=== PATIENT | male | born 1950 | race Caucasian/White ===

== ENCOUNTER 2018-01-15 10:17 | Inpatient (IN) ==
[2018-01-15 11:11] LABS: Hematocrit 30.3 % (42.0-52.0); Hemoglobin 9.4 gm/dL (13.5-18.0); Mean Cell Volume 92.4 fl (78-100); Mean Corpuscular Hemoglobin 28.7 pg (27-31); Mean Platelet Volume 9.9 fl (8-11.3); Neutrophil # 5.4 K/mm3 (1.3-6.0); Neutrophil % 89.6 % (42-75.0); Platelet Count 338 K/mm3 (150-450); Red Blood Count 3.28 M/mm3 (4.7-6.0); Red Cell Distribution Width 15.9 % (11.5-14.0)
[2018-01-15 11:27] LABS: Troponin I 0.036 ng/mL (0.00-0.10)
[2018-01-15 11:31] LABS: ALT 10 U/L (19-67); AST 16 U/L (0-48); Albumin * 2.5 gm/dl (3.4-5.0); Alkaline Phosphatase * 237 U/L (50-170); Anion Gap 14.1 mmol/L (6.8-13.8); BNP * 28270 pg/mL (5-350); BUN/Creatinine Ratio 20.7 (9.0-21.6); Bilirubin, Total 0.7 mg/dL (0.0-1.1); Blood Urea Nitrogen 40 mg/dL (6-23); Ca. Corrected For Albumin 9.5 mg/dL (8.4-10.2); Calcium * 8.6 mg/dL (7.9-10.9); Carbon Dioxide 24.5 mmol/L (24-32.6); Chloride 101 mmol/L (97-106); Glucose * 293 mg/dL (70-110); Lipase 76 U/L (73-393); Potassium 4.6 mmol/L (3.4-4.6); Sodium 135 mmol/L (132-142); Total Protein 8.9 gm/dL (6.2-8.2)
[2018-01-15] MEDS ORDERED: FUROSEMIDE 10 MG/ML VIAL IV ONE (11:52)
[2018-01-15] MEDS ORDERED: MORPHINE SULFATE 2 MG/ML DISP.SYRIN IV ONE (11:53)
[2018-01-15] MEDS ORDERED: FUROSEMIDE 10 MG/ML VIAL ONE (11:58)
[2018-01-15] MEDS ORDERED: MORPHINE SULFATE 2 MG/ML DISP.SYRIN ONE (11:58)
[2018-01-15 12:28] LABS: Urine Bilirubin Negative (NEGATIVE); Urine Blood 25 /ul (NEGATIVE); Urine Ketone Negative (NEGATIVE); Urine Nitrite Negative (NEGATIVE); Urine Protein 100 mg/dL (NEGATIVE); Urine Specific Gravity 1.025 SP.GR. (1.005-1.030); Urine Urobilinogen Normal (NORMAL); Urine pH 5.5 pH (5.0-7.0)
--- NOTE | 2018-01-15 12:35 | ERNOTE ---
Dyspnea - Date Date of Service: 01/15/18 - General Presenting Symptoms: shortness of breath Time Seen by Provider: 01/15/18 10:40 Source: patient Exam Limitations: no limitations - Immun/Allergies/Home Medications Immunizations: IMMUNIZATION HX Immunizations Up to Date Yes History of Influenza Vaccine Yes Hx Pneumococcal Vaccination Yes Allergies/Adverse Reactions: Allergies No Known Allergies Allergy (Verified 01/15/18 10:33) - History of Present Illness Narrative: Patient presents to the ED with leg pain and swelling, SOB and increasing CONTRERAS. He relates that he has been getting more SOB for the last 1-2 months and now he can't even walk 15 steps without having to stop d/t SOB. No fever. Bilateral leg swelling and weeping that is new and bilateral leg aching. He has not been taking his medications for the last many months because he ran out. Generalized weakness but denies acute focal weakness. Severity: moderate Treatment ONLINE FACILITATOR: none Initiating event: Reports: out of meds Frequency of episodes: Reports: no prior episodes Modifying Factors - (Improves): Reports: other - nothing Modifying Factors (Worsens): Reports: other - exertion Associated Symptoms-Dyspnea: Reports: ankle/leg swelling. Denies: fever/chills , dizziness Prior Treatment: Denies: recently seen Review of Systems - Review of Systems Constitutional: Absent: fever ENT: Present: no symptoms reported Respiratory: Present: shortness of breath Cardiology: Absent: chest pain Gastrointestinal/Abdominal: Absent: vomiting Genitourinary: Absent: dysuria All Other Systems: All systems neg except as marked Medical History (Last Reviewed 01/15/18 @ 12:30 by Ari Carvalho MD) Congestive heart failure HTN (hypertension) Pacemaker Surgical History: Surgical History (Last Reviewed 01/15/18 @ 12:30 by Ari Carvalho MD) coronary artery bypass Social History: Preferred Language Divehi Smoking Status Former smoker Alcohol Use none Drug Use none Physical Exam - Physical Exam General Appearance: Present: alert, no apparent distress Head Exam: Present: normal inspection, no evidence of injury Eye Exam: Normal inspection: bilateral, PERRL: bilateral Ears, Nose, Throat: Present: normal ENT inspection Neck: Present: other - trachea midline Respiratory: Present: other - mild tachypnea with talking. Decreased breath sounds right base. Cardiovascular/Chest: Present: normal peripheral pulses, irregularly irregular Gastrointestinal/Abdominal: Present: normal bowel sounds, nontender, soft, other - mild distention, Back Exam: Absent: CVA tenderness (R), CVA tenderness (L) Neurological Exam: Present: alert, other - no acute unilateral focal motor or snesory deficits. Skin Exam: Present: normal color, warm/dry, other - Bilateral LE edema and bilateral LE cellulitis d/t weeping. ED Progress - Results and Orders Patient's Lab Results:: I have reviewed the patient's lab results. - Vital Signs Patient's Vital Signs:: I have reviewed the patient's vital signs. Vital Signs: Vital Signs 01/15/18 10:17 01/15/18 11:03 01/15/18 11:29 Temperature 36.5 C Pulse Rate 89 93 87 Respiratory Rate 23 H 22 H 25 H Blood Pressure 164/85 H 148/76 148/76 O2 Sat by Pulse Oximetry 100 99 100 01/15/18 12:07 01/15/18 12:09 Temperature 36.9 C Pulse Rate 91 90 Respiratory Rate 22 H Blood Pressure 156/80 H O2 Sat by Pulse Oximetry 100 - EKG EKG: atrial fibrillation EKG read: Interp. by me EKG Comments: A fib RBBB. Non-specific, no clear evidence of STEMI - X-Ray X-Ray #1 X-Ray: chest Interpretation: Interp. by me X-ray Comments: I reviewed official radiology report - Progress/Reassessment Chief Complaint: Dyspnea Progress Note-Subjective: 01/15/18 12:33 Patient out of his medications. Given IV lasix. Has CHF. He tells me he does not recall being diagnosed with CHF in the past. Has cellulitis bilateral LE d/ y weeping and stasis changes. IV ABx given and IV blood Cx given. D/W Dr Bowers, will admit. patient agreeable. I discussed warning signs and reasons to return as well as the need for close f/u. Departure Clinical Impression: Cellulitis, Congestive heart failure - Departure Disposition: Still a patient Condition: Fair
[2018-01-15 12:41] LABS: Urine Appearance Cloudy (CLEAR); Urine Bacteria 2+; Urine Coarse Granular Cast 0-5 /LPF; Urine Color Yellow; Urine Fine Granular Cast 0-5 /LPF; Urine Hyaline Cast 0-5 /LPF; Urine RBC 0-5 /hpf (0-5)
[2018-01-15] MEDS ORDERED: traMADol HCL 50 MG TABLET PO PRN ×3 (15:16→15:59)
--- NOTE | 2018-01-15 16:10 | HP ---
Chief Complaint - Chief Complaint Date of Service: 01/15/18 Time of Service: 15:49 Chief Complaint: shortness of breath History of Present Illness: Sean Mukherjee, is a 67-year-old white male, patient of Dr. Bj Kramer, with past medical history of chronic atrial fibrillation, chronic kidney disease stage III , coronary artery disease status post CABG, hypertension, hyperlipidemia, pacemaker placement, diabetes mellitus type 2, who was admitted on 01/15/2018 because of increasing shortness of breath. The patient says that for the last 1 -2 weeks he has been having shortness of breath associated with swelling of his lower extremities and orthopnea. One week prior to admission his lower extremities started to get more swollen and became erythematous was with some weeping of fluid. He says he has not been taking any of his medications since 5 -6 months ago ever since he ran out of them. He has not followed up with his PCP for 1 year now. He was seen in our emergency room where he was found to have an elevated BNP of 28,000+, normal WBC, elevated BUN/creatinine, normal troponin and a chest x-ray showed bilateral pleural effusion right more than left, right middle lobe and right lower lobe consolidation likely atelectasis but cannot rule out pneumonia. He was given IV Lasix 40 mg in was then admitted. His main complaint now is that he wants and feels he will urinate but he cannot bring it out. 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 Smoking Status Former smoker Have you smoked in the past 12 No months Do you dip or chew tobacco No Alcohol Use none Drug Use none Review Of Systems (GEN) - Review of Systems Generalized/Overall Review: Absent: Weakness, Chills, Fever Respiratory: Present: Shortness of Breath, Orthopnea Cardiac: Present: Edema. Absent: Chest Pain, Palpitations Abdominal: Absent: Nausea, Vomiting Genitourinary: Absent: Urgency, Frequency Musculoskeletal: Present: Joint Pain Immunizations: IMMUNIZATION HX Immunizations Up to Date Yes History of Influenza Vaccine Yes Hx Pneumococcal Vaccination Yes Allergies/Adverse Reactions: Allergies Allergy/AdvReac Type Severity Reaction Status Date / Time No Known Allergies Allergy Verified 01/15/18 13:51 Home Medications: HOME MEDICATIONS Allopurinol [Zyloprim (Allopurinol)] 100 mg PO DAILY 01/15/18 [Last Taken Unknown] Amiodarone HCl 200 mg PO DAILY 01/15/18 [Last Taken Unknown] Apixaban [Eliquis] 2.5 mg PO BID 01/15/18 [Last Taken Unknown] Aspirin 81 mg PO DAILY 01/15/18 [Last Taken Unknown] Diltiazem HCl [Cardizem] 120 mg PO HS 01/15/18 [Last Taken Unknown] Furosemide [Lasix] 20 mg PO DAILY 01/15/18 [Last Taken Unknown] Insulin Glargine,Hum.rec.anlog [Lantus] 42 unit SQ BID 01/15/18 [Last Taken Unknown] Insulin Lispro [Humalog] See Protocol SQ AC 01/15/18 [Last Taken Unknown] Lisinopril 20 mg PO DAILY 01/15/18 [Last Taken Unknown] Simvastatin [Zocor] 20 mg PO HS 01/15/18 [Last Taken Unknown] traMADol HCL [Tramadol HCl] 50 mg PO ONCE PRN 01/15/18 [Last Taken Unknown] Exam - Exam Vital Signs: Vital Signs - Last Taken Temp 36.4 C 01/15/18 13:59 Pulse 93 01/15/18 15:17 Resp 16 01/15/18 13:59 BP 158/82 H 01/15/18 13:59 Pulse Ox 100 01/15/18 13:59 Constitutional: Present: Alert, Oriented x3, Cooperative ENT Exam: Present: hearing grossly normal Eye Exam: bilateral eye: normal inspection, PERRL, EOMI Neck: Present: supple Respiratory: Present: decreased breath sounds, rales. Absent: No wheezing Cardiovascular/Chest: Present: no murmur, JVD, irregularly irregular Abdomen: Present: soft, nontender, distended, hypoactive Extremity: Present: inflammation, lower extremity edema, other - erythema Diagnostic Studies: Abnormal Lab Results 01/15/18 01/15/18 01/15/18 Range/Units 11:00 11:00 11:00 RBC 3.28 L (4.7-6.0) M/mm3 Hgb 9.4 L (13.5-18.0) gm/dL Hct 30.3 L (42.0-52.0) % MCHC 31.0 L (32-36) g/dl RDW 15.9 H (11.5-14.0) % Neutrophils % 89.6 H (42-75.0) % Lymphocytes % 3.8 L (20-51) % Lymphocytes # 0.23 L (1.5-3.5) k/mm3 Anion Gap 14.1 H (6.8-13.8) mmol/L BUN 40 H (6-23) mg/dL Creatinine 1.93 H (0.4-1.4) mg/dL Est GFR (Non-Af Amer) 37 L (60-130) mL/min Random Glucose 293 H (70-110) mg/dL Lactic Acid, Venous 2.3 H* (0.4-2.0) mmol/L ALT 10 L (19-67) U/L Alkaline Phosphatase 237 H (50-170) U/L B-Natriuretic Peptide 84753 H (5-350) pg/mL Total Protein 8.9 H (6.2-8.2) gm/dL Albumin 2.5 L (3.4-5.0) gm/dl Urine Protein (NEGATIVE) mg/dL Urine Glucose (UA) (NEGATIVE) mg/dL Urine Blood (NEGATIVE) /ul Prot Sulfosalicylic Acd (0) mg/dL Ur Leukocyte Esterase (NEGATIVE) /ul Urine WBC (0-5) /hpf Ur Epithelial Cells (0-5) /hpf Calcium Oxalate Crystal (NONE) /hpf Uric Acid Crystals (NONE) /hpf Urine Bacteria (NONE) Hyaline Casts (NONE) /LPF Fine Granular Casts (NONE) /LPF Coarse Granular Casts (NONE) /LPF 01/15/18 01/15/18 Range/Units 12:10 14:11 RBC (4.7-6.0) M/mm3 Hgb (13.5-18.0) gm/dL Hct (42.0-52.0) % MCHC (32-36) g/dl RDW (11.5-14.0) % Neutrophils % (42-75.0) % Lymphocytes % (20-51) % Lymphocytes # (1.5-3.5) k/mm3 Anion Gap (6.8-13.8) mmol/L BUN (6-23) mg/dL Creatinine (0.4-1.4) mg/dL Est GFR (Non-Af Amer) (60-130) mL/min Random Glucose (70-110) mg/dL Lactic Acid, Venous 2.1 H (0.4-2.0) mmol/L ALT (19-67) U/L Alkaline Phosphatase (50-170) U/L B-Natriuretic Peptide (5-350) pg/mL Total Protein (6.2-8.2) gm/dL Albumin (3.4-5.0) gm/dl Urine Protein 100 H (NEGATIVE) mg/dL Urine Glucose (UA) >=1000 H (NEGATIVE) mg/dL Urine Blood 25 H (NEGATIVE) /ul Prot Sulfosalicylic Acd 3+ H (0) mg/dL Ur Leukocyte Esterase 100 H (NEGATIVE) /ul Urine WBC 5-10 H (0-5) /hpf Ur Epithelial Cells >25 H (0-5) /hpf Calcium Oxalate Crystal Few - 1+ H (NONE) /hpf Uric Acid Crystals Few - 1+ H (NONE) /hpf Urine Bacteria 2+ H (NONE) Hyaline Casts 0-5 H (NONE) /LPF Fine Granular Casts 0-5 H (NONE) /LPF Coarse Granular Casts 0-5 H (NONE) /LPF Laboratory Results WBC 6.0 K/mm3 (4.0-10.5) 01/15/18 11:00 RBC 3.28 M/mm3 (4.7-6.0) L 01/15/18 11:00 Hgb 9.4 gm/dL (13.5-18.0) L 01/15/18 11:00 Hct 30.3 % (42.0-52.0) L 01/15/18 11:00 MCV 92.4 fl (78-100) 01/15/18 11:00 MCH 28.7 pg (27-31) 01/15/18 11:00 MCHC 31.0 g/dl (32-36) L 01/15/18 11:00 RDW 15.9 % (11.5-14.0) H 01/15/18 11:00 Plt Count 338 K/mm3 (150-450) 01/15/18 11:00 MPV 9.9 fl (8-11.3) 01/15/18 11:00 Immature Gran % (Auto) 0.30 % (0.001-0.429) 01/15/18 11:00 Immature Gran # (Auto) 0.02 K/mm3 (0.000-0.0310) 01/15/18 11:00 Neutrophils % 89.6 % (42-75.0) H 01/15/18 11:00 Lymphocytes % 3.8 % (20-51) L 01/15/18 11:00 Monocytes % 4.5 % (0.0-9) 01/15/18 11:00 Eosinophils % 1.0 % (0.0-3.0) 01/15/18 11:00 Basophils % 0.8 % (0.0-1.0) 01/15/18 11:00 Nucleated RBC % 0.0 k/mm3 (0-1) 01/15/18 11:00 Neutrophils # 5.4 K/mm3 (1.3-6.0) 01/15/18 11:00 Lymphocytes # 0.23 k/mm3 (1.5-3.5) L 01/15/18 11:00 Monocytes # 0.3 k/mm3 (0.0-1.0) 01/15/18 11:00 Eosinophils # 0.1 k/mm3 (0.0-0.7) 01/15/18 11:00 Absolute Basophils 0.1 k/mm3 (0.0-0.1) 01/15/18 11:00 Sodium 135 mmol/L (132-142) 01/15/18 11:00 Plasma Sodium 138 mmol/L (130-142) 01/15/18 11:00 Potassium 4.6 mmol/L (3.4-4.6) 01/15/18 11:00 Chloride 101 mmol/L (97-106) 01/15/18 11:00 Carbon Dioxide 24.5 mmol/L (24-32.6) 01/15/18 11:00 Anion Gap 14.1 mmol/L (6.8-13.8) H 01/15/18 11:00 BUN 40 mg/dL (6-23) H 01/15/18 11:00 Creatinine 1.93 mg/dL (0.4-1.4) H 01/15/18 11:00 Est GFR (Non-Af Amer) 37 mL/min (60-130) L 01/15/18 11:00 BUN/Creatinine Ratio 20.7 (9.0-21.6) 01/15/18 11:00 Random Glucose 293 mg/dL (70-110) H 01/15/18 11:00 Lactic Acid, Venous 2.1 mmol/L (0.4-2.0) H 01/15/18 14:11 Calcium 8.6 mg/dL (7.9-10.9) 01/15/18 11:00 Calcium Adj for Albumin 9.5 mg/dL (8.4-10.2) 01/15/18 11:00 Total Bilirubin 0.7 mg/dL (0.0-1.1) 01/15/18 11:00 AST 16 U/L (0-48) 01/15/18 11:00 ALT 10 U/L (19-67) L 01/15/18 11:00 Alkaline Phosphatase 237 U/L (50-170) H 01/15/18 11:00 Ammonia Less than 17.0 mcmol/L (11-35) 01/15/18 11:00 Troponin I 0.036 ng/mL (0.00-0.10) 01/15/18 11:00 B-Natriuretic Peptide 73541 pg/mL (5-350) H 01/15/18 11:00 Total Protein 8.9 gm/dL (6.2-8.2) H 01/15/18 11:00 Albumin 2.5 gm/dl (3.4-5.0) L 01/15/18 11:00 Lipase 76 U/L (73-393) 01/15/18 11:00 Urine Color Yellow 01/15/18 12:10 Urine Appearance Cloudy (CLEAR) 01/15/18 12:10 Urine pH 5.5 pH (5.0-7.0) 01/15/18 12:10 Ur Specific [place] 1.025 SP.GR. (1.005-1.030) 01/15/18 12:10 Urine Protein 100 mg/dL (NEGATIVE) H 01/15/18 12:10 Urine Glucose (UA) >=1000 mg/dL (NEGATIVE) H 01/15/18 12:10 Urine Ketones Negative mg/dL (NEGATIVE) 01/15/18 12:10 Urine Blood 25 /ul (NEGATIVE) H 01/15/18 12:10 Urine Nitrate Negative (NEGATIVE) 01/15/18 12:10 Urine Bilirubin Negative mg/dl (NEGATIVE) 01/15/18 12:10 Prot Sulfosalicylic Acd 3+ mg/dL (0) H 01/15/18 12:10 Urine Urobilinogen Normal EU/dl (NORMAL) 01/15/18 12:10 Ur Leukocyte Esterase 100 /ul (NEGATIVE) H 01/15/18 12:10 Urine RBC 0-5 /hpf (0-5) 01/15/18 12:10 Urine WBC 5-10 /hpf (0-5) H 01/15/18 12:10 Ur Epithelial Cells >25 /hpf (0-5) H 01/15/18 12:10 Calcium Oxalate Crystal Few - 1+ /hpf (NONE) H 01/15/18 12:10 Uric Acid Crystals Few - 1+ /hpf (NONE) H 01/15/18 12:10 Urine Bacteria 2+ (NONE) H 01/15/18 12:10 Hyaline Casts 0-5 /LPF (NONE) H 01/15/18 12:10 Fine Granular Casts 0-5 /LPF (NONE) H 01/15/18 12:10 Coarse Granular Casts 0-5 /LPF (NONE) H 01/15/18 12:10 Urine Culture Comments Culture to follow 01/15/18 12:10 Ethyl Alcohol Less than 3.0 mg/dL (0.0-10.0) 01/15/18 11:00 Assessment/Plan - Assessment/Plan (1) Congestive heart failure Assessment: will continue with IV diuresis and get an echocardiogram. Problem: Acute Qualifiers: Heart failure type: combined systolic and diastolic Heart failure chronicity: acute Qualified Code(s): I50.41 - Acute combined systolic ( congestive) and diastolic (congestive) heart failure (2) Cellulitis Assessment: b/l. continue with IV rocephin, elevate legs. Problem: Acute Qualifiers: Site of cellulitis: extremity Site of cellulitis of extremity: lower extremity Laterality: unspecified laterality Qualified Code(s): L03.119 - Cellulitis of unspecified part of limb (3) CAD (coronary artery disease), autologous vein bypass graft Problem: Chronic Qualifiers: Associated angina: without angina Qualified Code(s): I25.810 - Atherosclerosis of coronary artery bypass graft(s) without angina pectoris (4) Diabetes mellitus Problem: Chronic Qualifiers: Diabetes mellitus type: type 2 Diabetes mellitus longterm insulin use: with terminal operations supervisor use Diabetes mellitus complication status: with kidney complications Diabetes mellitus complication detail: with chronic kidney disease Chronic kidney disease stage: stage 3 (moderate) Qualified Code(s): E11.22 - Type 2 diabetes mellitus with diabetic chronic kidney disease; N18.3 - Chronic kidney disease, stage 3 (moderate); Z79.4 - termite treater (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 will start a alvarez cath and get a KATJA. Problem: Acute
[2018-01-15] MEDS: INSULIN LISPRO 100 UNITS/ML VIAL SC SCH (16:34)
[2018-01-15] MEDS: POTASSIUM CHLORIDE 20 MEQ TABLET.SA PO SCH (16:34)
[2018-01-15] MEDS ORDERED: oxyCODONE HCL/ACETAMINOPHEN 1 TAB TABLET PO PRN (16:42)
[2018-01-15] MEDS: TAMSULOSIN HCL 0.4 MG CAP.SR.24H PO SCH (18:12)
[2018-01-15] MEDS: INSULIN GLARGINE,HUM.REC.ANLOG 100 UNITS/ML VIAL SC SCH (21:25)
[2018-01-15] MEDS: APIXABAN 2.5 MG TABLET PO SCH (21:27)
[2018-01-15] MEDS: SIMVASTATIN 20 MG TABLET PO SCH (21:28)
[2018-01-15] MEDS: DILTIAZEM HCL 120 MG CAP.SR.24H PO SCH (21:28)
[2018-01-15] MEDS: FUROSEMIDE 10 MG/ML VIAL IV SCH (21:29)
[2018-01-15] MEDS: oxyCODONE HCL/ACETAMINOPHEN 1 TAB TABLET PO PRN (21:37)
[2018-01-16] MEDS: INSULIN LISPRO 100 UNITS/ML VIAL SC SCH ×3 (06:35→17:01)
[2018-01-16] MEDS ORDERED: AMIODARONE HCL 200 MG TABLET PO SCH (09:00)
[2018-01-16] MEDS ORDERED: LISINOPRIL 20 MG TABLET PO SCH (09:00)
[2018-01-16] MEDS: ASPIRIN 81 MG TAB.CHEW PO SCH (09:08)
[2018-01-16] MEDS: POTASSIUM CHLORIDE 20 MEQ TABLET.SA PO SCH ×2 (09:09→17:02)
[2018-01-16] MEDS: FUROSEMIDE 10 MG/ML VIAL IV SCH ×2 (09:09→21:30)
[2018-01-16] MEDS: APIXABAN 2.5 MG TABLET PO SCH ×2 (09:09→21:29)
[2018-01-16] MEDS: INSULIN GLARGINE,HUM.REC.ANLOG 100 UNITS/ML VIAL SC SCH ×2 (09:09→23:00)
[2018-01-16] MEDS: oxyCODONE HCL/ACETAMINOPHEN 1 TAB TABLET PO PRN ×2 (09:10→17:40)
[2018-01-16] MEDS: ALLOPURINOL 100 MG TABLET PO SCH (09:10)
--- NOTE | 2018-01-16 09:54 | PN ---
Subjective - Date and Time Seen Date: 01/16/18 Time: 09:51 Subjective Narrative: patient says he is less SOB but his legs are still sore. Objective - Review of Systems Generalized/Overall Review: Reports: Weakness. Denies: Chills, Fever Respiratory: Reports: Shortness of Breath, Orthopnea. Denies: Cough, Wheezing Cardiac: Reports: Edema. Denies: Chest Pain, Palpitations Abdominal: Denies: Nausea, Vomiting Genitourinary Symptoms: Denies: Urgency, Frequency Musculoskeletal Complaints: Reports: Joint Pain - Vitals Vitals: Last Vital Signs Temp 36.4 C 01/16/18 07:29 Pulse 61 01/16/18 09:09 Resp 20 01/16/18 07:29 BP 122/48 01/16/18 09:09 Pulse Ox 96 01/16/18 07:29 - Abnormal Lab Findings Abnormal Lab Findings: Abnormal Lab Results 01/15/18 01/15/18 01/15/18 Range/Units 11:00 11:00 11:00 RBC 3.28 L (4.7-6.0) M/mm3 Hgb 9.4 L (13.5-18.0) gm/dL Hct 30.3 L (42.0-52.0) % MCHC 31.0 L (32-36) g/dl RDW 15.9 H (11.5-14.0) % Neutrophils % 89.6 H (42-75.0) % Lymphocytes % 3.8 L (20-51) % Lymphocytes # 0.23 L (1.5-3.5) k/mm3 Anion Gap 14.1 H (6.8-13.8) mmol/L BUN 40 H (6-23) mg/dL Creatinine 1.93 H (0.4-1.4) mg/dL Est GFR (Non-Af Amer) 37 L (60-130) mL/min Random Glucose 293 H (70-110) mg/dL Lactic Acid, Venous 2.3 H* (0.4-2.0) mmol/L ALT 10 L (19-67) U/L Alkaline Phosphatase 237 H (50-170) U/L B-Natriuretic Peptide 76657 H (5-350) pg/mL Total Protein 8.9 H (6.2-8.2) gm/dL Albumin 2.5 L (3.4-5.0) gm/dl Urine Protein (NEGATIVE) mg/dL Urine Glucose (UA) (NEGATIVE) mg/dL Urine Blood (NEGATIVE) /ul Prot Sulfosalicylic Acd (0) mg/dL Ur Leukocyte Esterase (NEGATIVE) /ul Urine WBC (0-5) /hpf Ur Epithelial Cells (0-5) /hpf Calcium Oxalate Crystal (NONE) /hpf Uric Acid Crystals (NONE) /hpf Urine Bacteria (NONE) Hyaline Casts (NONE) /LPF Fine Granular Casts (NONE) /LPF Coarse Granular Casts (NONE) /LPF 01/15/18 01/15/18 Range/Units 12:10 14:11 RBC (4.7-6.0) M/mm3 Hgb (13.5-18.0) gm/dL Hct (42.0-52.0) % MCHC (32-36) g/dl RDW (11.5-14.0) % Neutrophils % (42-75.0) % Lymphocytes % (20-51) % Lymphocytes # (1.5-3.5) k/mm3 Anion Gap (6.8-13.8) mmol/L BUN (6-23) mg/dL Creatinine (0.4-1.4) mg/dL Est GFR (Non-Af Amer) (60-130) mL/min Random Glucose (70-110) mg/dL Lactic Acid, Venous 2.1 H (0.4-2.0) mmol/L ALT (19-67) U/L Alkaline Phosphatase (50-170) U/L B-Natriuretic Peptide (5-350) pg/mL Total Protein (6.2-8.2) gm/dL Albumin (3.4-5.0) gm/dl Urine Protein 100 H (NEGATIVE) mg/dL Urine Glucose (UA) >=1000 H (NEGATIVE) mg/dL Urine Blood 25 H (NEGATIVE) /ul Prot Sulfosalicylic Acd 3+ H (0) mg/dL Ur Leukocyte Esterase 100 H (NEGATIVE) /ul Urine WBC 5-10 H (0-5) /hpf Ur Epithelial Cells >25 H (0-5) /hpf Calcium Oxalate Crystal Few - 1+ H (NONE) /hpf Uric Acid Crystals Few - 1+ H (NONE) /hpf Urine Bacteria 2+ H (NONE) Hyaline Casts 0-5 H (NONE) /LPF Fine Granular Casts 0-5 H (NONE) /LPF Coarse Granular Casts 0-5 H (NONE) /LPF - Exam Constitutional: Present: Alert, Oriented x3, Cooperative ENT Exam: Present: hearing grossly normal Neck: Present: supple Respiratory: Present: decreased breath sounds, rales - fine, No wheezing Cardiovascular/Chest: Present: no murmur, JVD, irregularly irregular Abdomen: Present: Normal bowel sounds, soft, nontender, nondistended Extremity: Present: lower extremity edema, other - weeping sores Assessment/Plan - Problems/Diagnosis (1) Congestive heart failure Problem: Acute Qualifiers: Heart failure type: combined systolic and diastolic Heart failure chronicity: acute Qualified Code(s): I50.41 - Acute combined systolic ( congestive) and diastolic (congestive) heart failure Narrative: continue with IV diuresis. follow up Echo . (2) Ascites Problem: Acute Narrative: likely due to CHF. (3) Cellulitis Problem: Acute Qualifiers: Site of cellulitis: extremity Site of cellulitis of extremity: lower extremity Laterality: unspecified laterality Qualified Code(s): L03.119 - Cellulitis of unspecified part of limb Narrative: continue with IV antibiotics. will refer to wound center.. consider Venous US. (4) CAD (coronary artery disease), autologous vein bypass graft Problem: Chronic Qualifiers: Associated angina: without angina Qualified Code(s): I25.810 - Atherosclerosis of coronary artery bypass graft(s) without angina pectoris (5) Diabetes mellitus Problem: Chronic Qualifiers: Diabetes mellitus type: type 2 Diabetes mellitus intermediate insulin use: with intermediate use Diabetes mellitus complication status: with kidney complications Diabetes mellitus complication detail: with chronic kidney disease Chronic kidney disease stage: stage 3 (moderate) Qualified Code(s): E11.22 - Type 2 diabetes mellitus with diabetic chronic kidney disease; N18.3 - Chronic kidney disease, stage 3 (moderate); Z79.4 - terminal computer operator (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
[2018-01-16 12:56] LABS: Hematocrit 30.2 % (42.0-52.0); Hemoglobin 9.2 gm/dL (13.5-18.0); Mean Cell Volume 93.5 fl (78-100); Mean Corpuscular Hemoglobin 28.5 pg (27-31); Mean Corpuscular Hgb Conc 30.5 g/dl (32-36); Mean Platelet Volume 9.8 fl (8-11.3); Neutrophil # 4.2 K/mm3 (1.3-6.0); Neutrophil % 85.7 % (42-75.0); Platelet Count 321 K/mm3 (150-450); Red Blood Count 3.23 M/mm3 (4.7-6.0); Red Cell Distribution Width 15.9 % (11.5-14.0); White Blood Count 4.9 K/mm3 (4.0-10.5)
[2018-01-16 13:07] LABS: Anion Gap 9.7 mmol/L (6.8-13.8); BUN/Creatinine Ratio 22.4 (9.0-21.6); Calcium * 8.5 mg/dL (7.9-10.9); Carbon Dioxide 26.8 mmol/L (24-32.6); Estimated Creat Clear 30.8; Potassium 4.5 mmol/L (3.4-4.6)
--- NOTE | 2018-01-16 16:26 | CONS ---
[facility] - General Date of Service: 01/16/18 Source: patient Exam Limitations: no limitations - History of Present Illness Initial Comments: Patient is a 67 year old male, recently admitted to the hospital for treatment of congestive heart failure, cellulitis and urinary retention. He initially presented to the Emergency Department for treatment of shortness of breath and swelling and weeping of bilateral lower extremities. His past medical history includes chronic atrial fibrillation, chronic kidney disease stage III, coronary artery disease, hypertension, pacemaker and type II diabetes. His current symptoms consist of edema, redness and drainage of bilateral lower extremities. He describes moderate pain associated with the areas. Current treatment includes IV antibiotics. Timing/Duration: getting worse Severity: moderate Allergies/Adverse Reactions: Allergies No Known Allergies Allergy (Verified 01/15/18 13:51) Home Medications: Home Medications Medication Instructions Recorded Last Taken Allopurinol [Zyloprim 100 mg PO DAILY 01/15/18 Unknown (Allopurinol)] Amiodarone HCl 200 mg PO DAILY 01/15/18 Unknown Apixaban [Eliquis] 2.5 mg PO BID 01/15/18 Unknown Aspirin 81 mg PO DAILY 01/15/18 Unknown Diltiazem HCl [Cardizem] 120 mg PO HS 01/15/18 Unknown Furosemide [Lasix] 20 mg PO DAILY 01/15/18 Unknown Insulin Glargine,Hum.rec.anlog 42 unit SQ BID 01/15/18 Unknown [Lantus] Insulin Lispro [Humalog] See Protocol SQ AC 01/15/18 Unknown Lisinopril 20 mg PO DAILY 01/15/18 Unknown Simvastatin [Zocor] 20 mg PO HS 01/15/18 Unknown traMADol HCL [Tramadol HCl] 50 mg PO ONCE PRN 01/15/18 Unknown Procedures Insertion of intraocular lens prosthesis at time of cataract extraction, one- stage (04/22/07) Phacoemulsification and aspiration of cataract (04/22/07) Medications - Medications Current Medications: Current Medications Allopurinol (Zyloprim) 100 mg PO DAILY [facility] Stop: 02/15/18 09:01 Last Admin: 01/16/18 09:10 Dose: 100 mg Amiodarone HCl (Cordarone) 200 mg PO DAILY [facility] Stop: 02/15/18 09:01 Last Admin: 01/16/18 09:08 Dose: 200 mg Apixaban (Eliquis) 2.5 mg PO BID [facility] Stop: 02/14/18 21:01 Last Admin: 01/16/18 09:09 Dose: 2.5 mg Aspirin (Aspirin Chewable) 81 mg PO DAILY [facility] Stop: 02/15/18 09:01 Last Admin: 01/16/18 09:08 Dose: 81 mg Diltiazem HCl (Cardizem Cd) 120 mg PO HS [facility] Stop: 02/14/18 21:01 Last Admin: 01/15/18 21:28 Dose: 120 mg Furosemide (Lasix) 40 mg IV BID [facility] Stop: 02/14/18 21:01 Last Admin: 01/16/18 09:09 Dose: 40 mg Ceftriaxone Sodium 1,000 mg/ (Dextrose/Water) 100 mls @ 200 mls/hr IV Q24H [facility] ; Protocol Stop: 02/15/18 13:01 Last Admin: 01/16/18 13:32 Dose: 200 mls/hr Insulin Glargine (Lantus) 30 units SC BID [facility] Stop: 02/14/18 21:01 Last Admin: 01/16/18 09:09 Dose: 30 units Insulin Human Lispro (Humalog) 0 - 21 units SC ACINS [facility]; Protocol Stop: 02/14/18 17:01 Last Admin: 01/16/18 11:45 Dose: Not Given Lisinopril (Zestril) 20 mg PO DAILY [facility] Stop: 02/15/18 09:01 Last Admin: 01/16/18 09:09 Dose: 20 mg Oxycodone/Acetaminophen (Percocet 5 Mg/325 Mg) 2 tab PO Q6H PRN PRN Reason: Pain Stop: 02/14/18 16:43 Last Admin: 01/16/18 09:10 Dose: 2 tab Potassium Chloride (K-Dur) 20 meq PO BIDWM [facility] Stop: 02/14/18 17:01 Last Admin: 01/16/18 09:09 Dose: 20 meq Simvastatin (Zocor) 20 mg PO HS [facility] Stop: 02/14/18 21:01 Last Admin: 01/15/18 21:28 Dose: 20 mg Tamsulosin HCl (Flomax) 0.4 mg PO DAILY@1800 [facility] Stop: 02/14/18 18:01 Last Admin: 01/15/18 18:12 Dose: 0.4 mg Review of Systems - Review of Systems Generalized/Overall Review: Absent: Chills, Fever EENTM: Absent: Nose Congestion Respiratory: Absent: Cough Cardiac: Absent: Chest Pain Abdominal: Absent: Nausea, Vomiting Musculoskeletal: Present: Joint Pain, Muscle Pain Neurological: Absent: Numbness, Tingling Skin: Present: Lesions, Change in Color Physical Examination - Exam Vital Signs: Vital Signs - Last Taken Temp 36.5 C 01/16/18 15:28 Pulse 64 01/16/18 15:28 Resp 16 01/16/18 15:28 BP 84/40 L 01/16/18 15:28 Pulse Ox 97 01/16/18 15:28 O2 Oxygen Delivery Method Room Air Constitutional: Present: Alert, No distress, Looks Older than stated age ENT Exam: Present: hearing grossly normal Extremity: Present: lower extremity edema, leg pain, other - posterior tibial and dorsalis pedis pulses are not palpable. Skin Exam: Present: other - bilateral distal lower extremities are reddened, with areas of weeping. - Results and Findings: Lab/Microbiology results last 24 hrs: Abnormal/Pending Laboratory Last 24 HRS 01/16/18 01/16/18 12:51 12:51 RBC 3.23 L Hgb 9.2 L Hct 30.2 L MCHC 30.5 L RDW 15.9 H Neutrophils % 85.7 H Lymphocytes % 4.7 L Lymphocytes # 0.23 L BUN 46 H Creatinine 2.05 H Est GFR (Non-Af Amer) 35 L BUN/Creatinine Ratio 22.4 H Culture 01/15/18 11:00 Blood Culture - Preliminary Blood NO GROWTH 24 HOURS 01/15/18 11:23 Blood Culture - Preliminary Blood NO GROWTH 24 HOURS 01/15/18 12:10 Urine Culture - Preliminary Urine,Voided No Pathogens Isolated - Assessments/Findings (1) Cellulitis Problem: Acute Qualifiers: Site of cellulitis: extremity Site of cellulitis of extremity: lower extremity Laterality: unspecified laterality Qualified Code(s): L03.119 - Cellulitis of unspecified part of limb (2) Weak pulse Problem: Acute (3) Stasis dermatitis of both legs Diagnosis(s): The patient would benefit from JIM's, to further assess his vascular status. Recommend using Aquacel Ag to the areas that are draining. This will be covered with gauze and secured with tubigrip for mild compression. The dressing will be changed daily. Wash the area with soap and water at dressing changes. Problem: Acute
[2018-01-16] MEDS: TAMSULOSIN HCL 0.4 MG CAP.SR.24H PO SCH (17:02)
[2018-01-16] MEDS: DILTIAZEM HCL 120 MG CAP.SR.24H PO SCH (21:22)
[2018-01-16] MEDS: SIMVASTATIN 20 MG TABLET PO SCH (21:30)
[2018-01-17] MEDS: INSULIN LISPRO 100 UNITS/ML VIAL SC SCH ×3 (06:39→17:39)
[2018-01-17] MEDS: oxyCODONE HCL/ACETAMINOPHEN 1 TAB TABLET PO PRN (06:43)
[2018-01-17] MEDS: ASPIRIN 81 MG TAB.CHEW PO SCH (08:23)
[2018-01-17] MEDS: POTASSIUM CHLORIDE 20 MEQ TABLET.SA PO SCH (08:23)
[2018-01-17] MEDS: APIXABAN 2.5 MG TABLET PO SCH ×2 (08:23→20:34)
[2018-01-17] MEDS: ALLOPURINOL 100 MG TABLET PO SCH (08:24)
--- NOTE | 2018-01-17 08:51 | PN ---
Subjective - Date and Time Seen Date: 01/17/18 Time: 08:40 Subjective Narrative: Patient's main complaint is leg pain, b/l. His BP has been on the low side and his BP med/IV lasix has been held. His Echo showed borderline reduced EF, PHTN, mean RVSP 57 (as he has AFib) but max was 64mm Hg, possible diastolic dysfunction, moderate TR, mild MA. Objective - Review of Systems Generalized/Overall Review: Denies: Chills, Fever Respiratory: Reports: Shortness of Breath. Denies: Cough Cardiac: Reports: Edema. Denies: Chest Pain, Palpitations Abdominal: Reports: Nausea. Denies: Vomiting Genitourinary Symptoms: Denies: Urgency, Frequency - Vitals Vitals: Last Vital Signs Temp 36.4 C 01/17/18 07:00 Pulse 82 01/17/18 07:00 Resp 18 01/17/18 07:00 BP 85/47 L 01/17/18 07:00 Pulse Ox 100 01/17/18 07:00 - Abnormal Lab Findings Abnormal Lab Findings: Abnormal Lab Results 01/16/18 01/16/18 Range/Units 12:51 12:51 RBC 3.23 L (4.7-6.0) M/mm3 Hgb 9.2 L (13.5-18.0) gm/dL Hct 30.2 L (42.0-52.0) % MCHC 30.5 L (32-36) g/dl RDW 15.9 H (11.5-14.0) % Neutrophils % 85.7 H (42-75.0) % Lymphocytes % 4.7 L (20-51) % Lymphocytes # 0.23 L (1.5-3.5) k/mm3 BUN 46 H (6-23) mg/dL Creatinine 2.05 H (0.4-1.4) mg/dL Est GFR (Non-Af Amer) 35 L (60-130) mL/min BUN/Creatinine Ratio 22.4 H (9.0-21.6) - Exam Constitutional: Present: Alert, Oriented x3, Cooperative ENT Exam: Present: hearing grossly normal Neck: Present: supple Respiratory: Present: decreased breath sounds, rales, No wheezing Cardiovascular/Chest: Present: JVD, systolic murmur, irregularly irregular Abdomen: Present: Normal bowel sounds, soft, nontender, nondistended Extremity: Present: lower extremity edema - improved, other - erythema, weak to absent pulse on palpation but positive pulses on Doppler Assessment/Plan - Problems/Diagnosis (1) Leg pain, bilateral Problem: Acute Narrative: r/o DVT r/o PAD. due to his PHTN will get a venous doppler. JIM on outpatient basis . (2) Pulmonary hypertension Problem: Acute Narrative: RVSP of 57, max was 64 mm HG possible Right heart failure. will continue with diuresis when BP allows. will do BMP- if Cr allows - will do a CTA ff. P.E. protocol. if high will V/Q scan. (3) Congestive heart failure Problem: Acute Qualifiers: Heart failure type: combined systolic and diastolic Heart failure chronicity: acute Qualified Code(s): I50.41 - Acute combined systolic ( congestive) and diastolic (congestive) heart failure Narrative: combined systolic/diastolic with PHTN r/o right heart failure. will continue with management if BP allows. (4) Cellulitis Problem: Acute Qualifiers: Site of cellulitis: extremity Site of cellulitis of extremity: lower extremity Laterality: unspecified laterality Qualified Code(s): L03.119 - Cellulitis of unspecified part of limb Narrative: continue with IV antibiotics. (5) CAD (coronary artery disease), autologous vein bypass graft Problem: Chronic Qualifiers: Associated angina: without angina Qualified Code(s): I25.810 - Atherosclerosis of coronary artery bypass graft(s) without angina pectoris (6) Diabetes mellitus Problem: Chronic Qualifiers: Diabetes mellitus type: type 2 Diabetes mellitus community outreach specialist insulin use: with community outreach specialist use Diabetes mellitus complication status: with kidney complications Diabetes mellitus complication detail: with chronic kidney disease Chronic kidney disease stage: stage 3 (moderate) Qualified Code(s): E11.22 - Type 2 diabetes mellitus with diabetic chronic kidney disease; N18.3 - Chronic kidney disease, stage 3 (moderate); Z79.4 - director advanced (current) use of insulin (7) Hypertension Problem: Chronic Qualifiers: Hypertension type: essential hypertension Qualified Code(s): I10 - Essential (primary) hypertension Narrative: now on the low side. will hold BP meds. will continue with IV lasix but go down to QD. (8) Pacemaker Problem: Chronic (9) Afib Problem: Chronic Qualifiers: Atrial fibrillation type: chronic Qualified Code(s): I48.2 - Chronic atrial fibrillation (10) Urinary retention Problem: Resolved (11) Decubitus ulcer Problem: Acute Qualifiers: Pressure injury location: buttock
[2018-01-17] MEDS ORDERED: FUROSEMIDE 10 MG/ML VIAL IV SCH (09:00)
[2018-01-17 10:00] LABS: Hematocrit 28.7 % (42.0-52.0); Hemoglobin 8.8 gm/dL (13.5-18.0); Mean Cell Volume 92.9 fl (78-100); Mean Corpuscular Hemoglobin 28.5 pg (27-31); Mean Corpuscular Hgb Conc 30.7 g/dl (32-36); Mean Platelet Volume 9.8 fl (8-11.3); Neutrophil # 4.7 K/mm3 (1.3-6.0); Neutrophil % 85.2 % (42-75.0); Platelet Count 293 K/mm3 (150-450); Red Blood Count 3.09 M/mm3 (4.7-6.0); Red Cell Distribution Width 15.9 % (11.5-14.0); White Blood Count 5.5 K/mm3 (4.0-10.5)
[2018-01-17 10:12] LABS: Albumin * 2.1 gm/dl (3.4-5.0); Anion Gap 7.5 mmol/L (6.8-13.8); BUN/Creatinine Ratio 22.4 (9.0-21.6); Calcium * 8.4 mg/dL (7.9-10.9); Carbon Dioxide 28.3 mmol/L (24-32.6); Potassium 5.8 mmol/L (3.4-4.6); Total Protein 7.8 gm/dL (6.2-8.2)
[2018-01-17 10:13] LABS: Bilirubin, Total 0.5 mg/dL (0.0-1.1); Ca. Corrected For Albumin 9.6 mg/dL (8.4-10.2)
[2018-01-17] MEDS: INSULIN GLARGINE,HUM.REC.ANLOG 100 UNITS/ML VIAL SC SCH (10:34)
--- NOTE | 2018-01-17 12:41 | ECHO ---
This report is available in the EMR
[2018-01-17] MEDS ORDERED: NORMAL SALINE 250 ML IV ONE (15:39)
[2018-01-17 17:00] LABS: Troponin I 0.031 ng/mL (0.00-0.10)
[2018-01-17] MEDS: TAMSULOSIN HCL 0.4 MG CAP.SR.24H PO SCH (17:58)
[2018-01-17] MEDS ORDERED: NOREPINEPHRINE BITARTRATE 4 MG in DEXTROSE 5 % IN WATER 496 ML IV PRN ×2 (18:02)
--- NOTE | 2018-01-17 18:06 | PN ---
[facility] Note - Interim Date: 01/17/18 Time: 18:03 Narrative: 01/17/18 18:03 Will transfer patient to [facility] and will start levophed drip. Will transfer patient to [facility] for availablty of cardiology, Nephrology and possible HD. 01/17/18 21:00 CVP line in. Levophed being titrated to keep MAP above 65. Dr. Marlow is accepting the patient.
[2018-01-17] MEDS ORDERED: HEPARIN SODIUM,PORCINE 5,000 UNITS/ML VIAL ONE (19:38)
[2018-01-17] MEDS ORDERED: HEPARIN SOD.,PORCINE 100 UNITS/ML ONE (19:38)
[2018-01-17] MEDS: DILTIAZEM HCL 120 MG CAP.SR.24H PO SCH (20:35)
[2018-01-17] MEDS: SIMVASTATIN 20 MG TABLET PO SCH (20:35)
--- NOTE | 2018-01-17 21:14 | DS ---
Transfer Discharge Summary - Diagnosis(s)/Problems (1) Leg pain, bilateral Narrative: Superficial femoral artery thrombosis Problem: Acute (2) Pulmonary hypertension Narrative: no P.E. Problem: Acute (3) Congestive heart failure Narrative: combined systolic (borderline decreased EF-50-55%) and diastolic dysfunction r/ o right heart failure Problem: Acute (4) Cellulitis Problem: Acute (5) CAD (coronary artery disease), autologous vein bypass graft Problem: Chronic (6) Diabetes mellitus Problem: Chronic (7) Hypertension Problem: Chronic (8) Pacemaker Problem: Chronic (9) Afib Problem: Chronic (10) Urinary retention Problem: Resolved (11) Decubitus ulcer Problem: Chronic (12) Acute renal failure (ARF) Narrative: on CRF . Problem: Acute - Course Description of Stay: Sean Mukherjee, is a 67-year-old white male, patient of Dr. Colon, with past medical history of chronic atrial fibrillation, chronic kidney disease stage III , coronary artery disease status post CABG, hypertension, hyperlipidemia, pacemaker placement, diabetes mellitus type 2, who was admitted on 01/15/2018 because of increasing shortness of breath. The patient says that for the last 1 -2 weeks he has been having shortness of breath associated with swelling of his lower extremities and orthopnea. One week prior to admission his lower extremities started to get more swollen and became erythematous was with some weeping of fluid. He says he has not been taking any of his medications since 5 -6 months ago ever since he ran out of them. He has not followed up with his PCP for 1 year now. He was seen in our emergency room where he was found to have an elevated BNP of 28,000+, normal WBC, elevated BUN/creatinine, normal troponin and a chest x-ray showed bilateral pleural effusion right more than left, right middle lobe and right lower lobe consolidation likely atelectasis but cannot rule out pneumonia. His WBC was not elevated. his Echo showed EF of 50-55 %, diastolic dysfucntion, PHTN with RSVP of 57, moderate TR, mild PA. He was diuresed with Lasix but did not really lose significant fluid or lose weight significantly as he started to have low blood pressures. He did feel clinically better with his SOB but complained of leg pains. Venous doppler did not show DVT but incidentally found a superfical femoral artery thrombosis. 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 His BUN/Cr continue to go up and his K today is 5.8. He was transferred to [facility] and started on Levophed drip. CVP line was inserted by Dr. Lopez.Thoracentesis was deferred for fear of further dropping his BP. He agreed with transfer to [facility] where he can get the services of the hospitalist program, cardiology and nephrology and possible HD. Dr. Robles is the accepting physician. Consultation Done:: Dr. Lopez Procedures Performed: see notes below Procedures: CVP line insertion - Results and Findings Results and Findings: Laboratory Results - last 24 hr 01/17/18 01/17/18 01/17/18 09:52 09:52 16:24 WBC 5.5 RBC 3.09 L Hgb 8.8 L Hct 28.7 L MCV 92.9 MCH 28.5 MCHC 30.7 L RDW 15.9 H Plt Count 293 MPV 9.8 Immature Gran % (Auto) 0.70 H Immature Gran # (Auto) 0.04 H Neutrophils % 85.2 H Lymphocytes % 3.4 L Monocytes % 9.1 H Eosinophils % 1.1 Basophils % 0.5 Nucleated RBC % 0.0 Neutrophils # 4.7 Lymphocytes # 0.19 L Monocytes # 0.5 Eosinophils # 0.1 Absolute Basophils 0.0 Sodium 131 L Plasma Sodium 130 Potassium 5.8 H D Chloride 101 Carbon Dioxide 28.3 Anion Gap 7.5 BUN 54 H Creatinine 2.41 H Est GFR (Non-Af Amer) 29 L BUN/Creatinine Ratio 22.4 H Random Glucose 47 L D Mean Blood Glucose 214 Hemoglobin A1c 9.0 H Lactic Acid, Venous Calcium 8.4 Calcium Adj for Albumin 9.6 Total Bilirubin 0.5 AST 16 ALT 10 L Alkaline Phosphatase 190 H Troponin I B-Natriuretic Peptide Total Protein 7.8 Albumin 2.1 L 01/17/18 01/17/18 16:24 16:24 WBC RBC Hgb Hct MCV MCH MCHC RDW Plt Count MPV Immature Gran % (Auto) Immature Gran # (Auto) Neutrophils % Lymphocytes % Monocytes % Eosinophils % Basophils % Nucleated RBC % Neutrophils # Lymphocytes # Monocytes # Eosinophils # Absolute Basophils Sodium Plasma Sodium Potassium Chloride Carbon Dioxide Anion Gap BUN Creatinine Est GFR (Non-Af Amer) BUN/Creatinine Ratio Random Glucose Mean Blood Glucose Hemoglobin A1c Lactic Acid, Venous 1.8 Calcium Calcium Adj for Albumin Total Bilirubin AST ALT Alkaline Phosphatase Troponin I 0.031 B-Natriuretic Peptide 26643 H Total Protein Albumin - Medications Medications: Active Medications Allopurinol (Zyloprim) 100 mg PO DAILY [facility] Stop: 02/15/18 09:01 Last Admin: 01/17/18 08:24 Dose: 100 mg Amiodarone HCl (Cordarone) 200 mg PO DAILY [facility] Stop: 02/15/18 09:01 Last Admin: 01/16/18 09:08 Dose: 200 mg Apixaban (Eliquis) 2.5 mg PO BID [facility] Stop: 02/14/18 21:01 Last Admin: 01/17/18 20:34 Dose: 2.5 mg Aspirin (Aspirin Chewable) 81 mg PO DAILY [facility] Stop: 02/15/18 09:01 Last Admin: 01/17/18 08:23 Dose: 81 mg Diltiazem HCl (Cardizem Cd) 120 mg PO HS [facility] Stop: 02/14/18 21:01 Last Admin: 01/17/18 20:35 Dose: Not Given Furosemide (Lasix) 40 mg IV DAILY [facility] Stop: 02/16/18 09:01 Last Admin: 01/17/18 11:00 Dose: 40 mg Ceftriaxone Sodium 1,000 mg/ (Dextrose/Water) 100 mls @ 200 mls/hr IV Q24H [facility] ; Protocol Stop: 02/15/18 13:01 Last Infusion: 01/17/18 12:59 Dose: Infused Norepinephrine Bitartrate 4 mg (/ Dextrose/Water) 500 mls @ 3.75 mls/hr IV TITR PRN; Protocol PRN Reason: Hypotension Stop: 02/16/18 18:03 Last Titration: 01/17/18 20:59 Dose: 6 mcg/min, 45 mls/hr Insulin Human Lispro (Humalog) 0 - 21 units SC ACINS [facility]; Protocol Stop: 02/14/18 17:01 Last Admin: 01/17/18 17:39 Dose: Not Given Lisinopril (Zestril) 20 mg PO DAILY [facility] Stop: 02/15/18 09:01 Last Admin: 01/16/18 09:09 Dose: 20 mg Oxycodone/Acetaminophen (Percocet 5 Mg/325 Mg) 2 tab PO Q6H PRN PRN Reason: Pain Stop: 02/14/18 16:43 Last Admin: 01/17/18 06:43 Dose: 2 tab Simvastatin (Zocor) 20 mg PO HS [facility] Stop: 02/14/18 21:01 Last Admin: 01/17/18 20:35 Dose: Not Given Tamsulosin HCl (Flomax) 0.4 mg PO DAILY@1800 [facility] Stop: 02/14/18 18:01 Last Admin: 01/17/18 17:58 Dose: 0.4 mg Discontinued Medications Furosemide (Lasix) 40 mg IV ONCE ONE Stop: 01/15/18 11:53 Last Admin: 01/15/18 12:09 Dose: 40 mg Furosemide (Lasix) 40 mg IV BID [facility] Stop: 02/14/18 21:01 Last Admin: 01/16/18 21:30 Dose: Not Given Ceftriaxone Sodium 1,000 mg/ (Dextrose/Water) 100 mls @ 200 mls/hr IV ONCE ONE ; Protocol Stop: 01/15/18 12:38 Last Infusion: 01/15/18 12:46 Dose: Infused Ceftriaxone Sodium 1,000 mg/ (Dextrose/Water) 100 mls @ 200 mls/hr IV Q24H [facility] ; Protocol Stop: 02/14/18 16:46 Last Admin: 01/15/18 16:46 Dose: Not Given Sodium Chloride (Sodium Chloride 0.9%) 250 mls @ 250 mls/hr IV .Q1H ONE Stop: 01/17/18 16:38 Last Infusion: 01/17/18 16:52 Dose: Infused Insulin Glargine (Lantus) 30 units SC BID [facility] Stop: 02/14/18 21:01 Last Admin: 01/17/18 10:34 Dose: Not Given Morphine Sulfate (Morphine Sulfate) 2 mg IV ONCE ONE Stop: 01/15/18 11:54 Last Admin: 01/15/18 12:05 Dose: 2 mg Oxycodone/Acetaminophen (Percocet 5 Mg/325 Mg) 1 tab PO Q6H PRN PRN Reason: Pain Stop: 02/14/18 16:43 Last Admin: 01/15/18 17:24 Dose: 1 tab Potassium Chloride (K-Dur) 20 meq PO BIDWM [facility] Stop: 02/14/18 17:01 Last Admin: 01/17/18 08:23 Dose: 20 meq Tramadol HCl (Ultram) 50 mg PO Q6H PRN PRN Reason: Pain Stop: 02/14/18 16:00 Last Admin: 01/15/18 16:13 Dose: 50 mg - Disposition Disposition: Short Term Hospital Inpatient Condition: Serious Discharge Date: 01/17/18 Discharge Time: 19:30
[2018-01-17 21:44] VITALS: BP 116/54
--- NOTE | 2018-01-18 09:32 | OR ---
Operative Report - Dictated Report Narrative: OPERATIVE REPORT DATE OF OPERATION: 01/17/2018 PREOPERATIVE DIAGNOSIS: Congestive heart failure, hypotension POSTOPERATIVE DIAGNOSIS: Same OPERATION: Insertion of right subclavian central venous catheter SURGEON: Rasheed Lopez MD ANESTHESIA: 1% lidocaine local INDICATIONS FOR PROCEDURE: The patient is a 67-year-old male admitted with profound shortness of breath and worsening lower extremity edema. He has developed hypotension which has not responded to fluid boluses. He also has evidence of right sided dysfunction, and ,with JVD, there is need to monitor his CVP for medication titration FINDINGS: Successful placement of right subclavian vein catheter NARRATIVE OF PROCEDURE: The patient was identified preoperatively, the surgical site was confirmed, and prior to the procedure a multidisciplinary timeout was observed. Central line bundle was used. With the patient supine, a rolled towel was placed between the shoulders and the right clavicular area was prepped with ChloraPrep and isolated with sterile drapes. The skin, subcutaneous tissue and periosteum of the clavicle were infiltrated with 1% lidocaine. The right subclavian vein was accessed using a standard central line kit. A guidewire was passed followed by a vein dilator. A previously flushed triple-lumen catheter was then advanced over the wire to 13 cm which was judged clinically to be a point in the vena cava. The guidewire was removed. The catheter was then secured to the skin with 3-0 silk. The area was cleansed and a dressing of Tegaderm applied. The patient tolerated the procedure well without complication there was no measurable blood loss. A postprocedure chest x-ray revealed no evidence of pneumothorax with the tip of the catheter in the superior vena cava. Reviewed and electronically signed
== END 2018-01-17 21:50 | disposition short-term general hospital (02) | DRG 314 ==
LOC: ER 10:17 → MS 12:12 → SCU 01-17 18:53
PROVIDERS: ADMIT Internal Medicine; ATTEND Internal Medicine
CPT/HCPCS: 36415; 71010; 71020; 71045; 71046; 76770; 78582; 80048; 80053; 80320; 81001; 82140; 83036; 83519; 83605; 83690; 83880; 84484; 85025; 87040; 87086; 93005; 93306; 93970; 96365; 96375; 99214; 99285; A9539; A9540; A9567; G0481